=== PATIENT | female | born 1980 | race Caucasian/White ===

== ENCOUNTER 2023-06-07 04:16 | Outpatient (CLI) | payer MEDICAID, SELFPAY ==
[2023-06-07 16:04] LABS: Abs Immature Grans 0.02 10^3/uL (0.0-0.06); Absolute Basophil Count 0.02 10^3/uL (0.0-0.2); Absolute Eosinophil Count 0.07 10^3/uL (0.0-0.7); Absolute Lymphocyte Count 1.89 10^3/uL (1.2-3.4); Absolute Monocyte Count 0.44 10^3/uL (0.1-0.8); Absolute Neutrophil Count 4.39 10^3/uL (1.2-6.7); Basophils % 0.3; HCT 37.3 % (36.0-46.0); HGB 12.8 g/dL (11.2-15.7); Immature Grans % 0.3; Lymphocytes % 27.7; MCH 31.4 pg (27.0-33.0); MCHC 34.3 % (32.0-36.0); MCV 91 fL (80-95); MPV 8.8 fL (8.0-11.0); Monocytes % 6.4; Neutrophils % 64.3; Platelet Count 236 10^3/uL (130-400); RBC 4.08 10^6/uL (3.93-5.22); RDW 12.2 % (11.7-14.6); RDW-SD 40.8 fL; WBC 6.83 10^3/uL (4.4-10.8)
[2023-06-08 19:00] LABS: HIV-1/2 Ag & Ab Screen Negative (Negative)
== END 2023-06-07 04:17 | disposition home or self-care (01) ==
LOC: LBO 04:16
PROVIDERS: Visit Provider Advanced Practice Midwife
DX: O09.521 Supervision of elderly multigravida, first trimester (principal); Z3A.11 11 weeks gestation of pregnancy
CPT/HCPCS: 36415; 86787; 86803; 86850; 86900; 86901; 87340; 87389; 85025; 86762; 86780

== ENCOUNTER 2023-06-07 15:55 | Outpatient (REF) | payer MEDICAID, SELFPAY ==
--- NOTE | 2023-06-07 14:45 | PAPFT_PTH ---
PATIENT: Fabiola Kimbrough LOC: [facility] U#:[id number] AGE/SX: 42/F ROOM: RE06/07/[address]: Lisa Iqbal : 1980 BED: DIS: 06/07/2023 SPEC #: [id number] RECD: 06/07/23 17:17 STATUS: CHEMO REQ #: [id number] MIRNA: 06/07/23 14:[address]: Lisa Iqbal DEPT: [facility] Cytology RECD BY: Marva Mason ENTERED: 06/07/23 17:19 SP TYPE: PAPFT OTHR DR: Clinton Woody Tissues: 1 - CX/ENDOCX FOR PAP SMEARS Procedures: PAP THIN PREP/[facility] Screening HPV DNA PROBE Comments: [id number] (CHLAMYDIA/GC)
[2023-06-07 17:17] LABS: *AMPHETAMINES SCREEN URINE Negative (Negative); *BARBITURATES SCREEN URINE Negative (Negative); *BENZODIAZEPINES SCREEN URINE Negative (Negative); Cannabinoids THC Negative (Negative); Cocaine Screen,Urine Negative (Negative); METHADONE URINE SCREEN Negative (Negative); OPIATES URINE SCREEN Negative (Negative); Tricyclic Antidepressants Negative (Negative)
[2023-06-08 14:55] LABS: Chlamydia Result Negative (Negative); GC Result Negative (Negative)
[2023-06-14 15:58] LABS: Fentanyl Scr w/Rfx Confirm Negative (Negative)
== END 2023-06-07 15:56 | disposition home or self-care (01) ==
LOC: LBN 15:55
PROVIDERS: PCP Naturopath; Visit Provider Advanced Practice Midwife
DX: Z34.91 Encounter for supervision of normal pregnancy, unspecified, first trimester (principal)
CPT/HCPCS: 80307; 87491; 87591; 88142; 80354; 87086; 87624

== ENCOUNTER 2023-06-09 02:50 | Outpatient (CLI) | payer MEDICAID, SELFPAY ==
[2023-06-09 15:59] LABS: Panorama Kit Sent via Fed Ex
[2023-06-12 08:42] LABS: Hepatitis B Surface Ag Negative (Negative)
[2023-06-12 09:18] LABS: Hepatitis C Ab w Rflx HCV PCR Negative (Negative)
[2023-06-12 14:39] LABS: Varicella IgG Antibody Positive (See Note)
[2023-06-12 14:46] LABS: Rubella IgG Ab (UVM) Positive (See Note)
[2023-06-13 13:33] LABS: Syphilis IgG w/Reflex Nonreactive (Nonreactive)
== END 2023-06-09 02:51 | disposition home or self-care (01) ==
LOC: LBO 02:51
PROVIDERS: PCP Naturopath; Visit Provider Advanced Practice Midwife
DX: Z34.91 Encounter for supervision of normal pregnancy, unspecified, first trimester; O09.511 Supervision of elderly primigravida, first trimester
CPT/HCPCS: 36415; 86787; 86803; 87340; 86762; 86780

== ENCOUNTER 2023-09-28 05:07 | Outpatient (CLI) | payer MEDICAID, SELFPAY ==
[2023-09-28 16:35] LABS: HCT 34.4 % (36.0-46.0); HGB 11.5 g/dL (11.2-15.7); MCH 32.7 pg (27.0-33.0); MCHC 33.4 % (32.0-36.0); MCV 98 fL (80-95); MPV 8.8 fL (8.0-11.0); Platelet Count 202 10^3/uL (130-400); RBC 3.52 10^6/uL (3.93-5.22); RDW 12.1 % (11.7-14.6); RDW-SD 43.2 fL; WBC 7.19 10^3/uL (4.4-10.8)
[2023-09-28 16:56] LABS: Glucose,1 Hr (Glucola) 146 mg/dL (80-140)
== END 2023-09-28 05:08 | disposition home or self-care (01) ==
LOC: LBO 05:07
PROVIDERS: Advanced Practice Midwife; PCP Naturopath; Visit Provider Advanced Practice Midwife
DX: Z34.93 Encounter for supervision of normal pregnancy, unspecified, third trimester (principal); Z3A.27 27 weeks gestation of pregnancy
CPT/HCPCS: 36415; 82950; 85027

== ENCOUNTER 2023-10-06 00:56 | Outpatient (CLI) | payer MEDICAID, SELFPAY ==
[2023-10-06 10:15] LABS: Glucose 1 Hour 155 mg/dL
[2023-10-06 12:14] LABS: Glucose 3 Hour 91 mg/dL
== END 2023-10-06 00:57 | disposition home or self-care (01) ==
LOC: LBO 00:57
PROVIDERS: PCP Naturopath; Visit Provider Advanced Practice Midwife
DX: R73.09 Other abnormal glucose (principal); Z34.93 Encounter for supervision of normal pregnancy, unspecified, third trimester; Z3A.27 27 weeks gestation of pregnancy
CPT/HCPCS: 36415; 82951